=== PATIENT | female | born 2000 | race Caucasian/White ===

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

== ENCOUNTER 2020-01-22 11:09 | Emergency (ER) | payer OTHER ==
[~2020-01-22] VITALS: Ht 172.7 cm; Wt 106.6 kg
[2020-01-22 12:18] LABS: BASO % 0.3 % (0.0-1.0); EOS # 0.1 10*3/uL (0.0-0.4); EOS % 0.8 % (1.0-4.0); HEMATOCRIT 38.3 % (37.0-47.0); LYMPH % 24.6 % (27.0-41.0); MEAN CELL VOLUME 91.4 fl (81.0-99.0); MEAN CORPUSCULAR HGB 30.3 pg (27.0-31.0); MEAN CORPUSCULAR HGB CONC 33.2 g/dl (33.0-37.0); MEAN PLATELET VOLUME 9.4 fl (9.6-12.3); MONO # 0.9 10*3/uL (0.1-1.0); NEUT # 8.1 10*3/uL (2.3-7.9); NEUT % 66.6 % (47.0-73.0); PLATELET COUNT AUTOMATED 292 10*3/uL (130-400); RED BLOOD COUNT 4.19 10*6/uL (4.10-5.10); RED CELL DISTRI WIDTH 12.6 % (0-14.5); WHITE BLOOD COUNT 12.1 10*3/uL (4.8-10.8)
[2020-01-22 12:21] LABS: BILIRUBIN NEGATIVE (NEGATIVE); BLOOD NEGATIVE (NEGATIVE); CLARITY SL CLOUDY (CLEAR); COLOR YELLOW (YELLOW); GLUCOSE NEGATIVE (NEGATIVE); KETONE NEGATIVE (NEGATIVE); NITRITE POSITIVE (NEGATIVE); SPECIFIC GRAVITY 1.015 (1.005-1.030); UROBILINOGEN 0.2 E.U./dl (0.2-1.0)
[2020-01-22 12:22] LABS: LEUKO ESTERASE NEGATIVE (NEGATIVE)
[2020-01-22 12:26] LABS: BACTERIA 3+
[2020-01-22 12:32] LABS: ALBUMIN 3.3 gm/dl (3.1-4.5); ALKALINE PHOSPHATASE 60 U/L (45-117); BUN 8 mg/dl (7-24); CHLORIDE 108 mmol/L (98-107); CREATININE 0.61 mg/dL (0.55-1.02); LIPASE 66 U/L (73-393); POTASSIUM 3.9 mmol/L (3.5-5.1); SGOT/AST 16 IU/L (3-35); SGPT/ALT 18 U/L (12-78); SODIUM 139 mmol/L (136-145)
== END 2020-01-22 14:10 | disposition home or self-care (01) ==
LOC: ED 11:09
PROVIDERS: Physician Assistant
DX: G89.29 Other chronic pain (principal); R10.9 Unspecified abdominal pain; R20.0 Anesthesia of skin; R20.2 Paresthesia of skin; F17.200 Nicotine dependence, unspecified, uncomplicated

== ENCOUNTER 2020-05-02 19:23 | Emergency (ER) | payer OTHER ==
[~2020-05-02] VITALS: Ht 175.2 cm; Wt 111.6 kg
[2020-05-02 20:20] LABS: CLARITY CLEAR (CLEAR); COLOR STRAW (YELLOW)
[2020-05-02 20:22] LABS: BILIRUBIN NEGATIVE (NEGATIVE); BLOOD NEGATIVE (NEGATIVE); GLUCOSE NEGATIVE (NEGATIVE); KETONE NEGATIVE (NEGATIVE)
[2020-05-02 20:23] LABS: PH 5.5 (5.0-9.0); UROBILINOGEN 0.2 E.U./dl (0.2-1.0)
[2020-05-02 20:27] LABS: NITRITE NEGATIVE (NEGATIVE)
[2020-05-02 20:28] LABS: LEUKO ESTERASE NEGATIVE (NEGATIVE)
[2020-05-02 20:29] LABS: BACTERIA TRACE; CALCIUM OXALATE CRYSTALS TR; EPITHELIAL CELLS 0-2; RBC 0-2 rbc/hpf (0-2); WBC 0-2 wbc/hpf (0-5)
== END 2020-05-02 21:15 | disposition home or self-care (01) ==
LOC: ED 19:23
PROVIDERS: Emergency Medicine
DX: O46.8X2 Other antepartum hemorrhage, second trimester (principal); Z3A.22 22 weeks gestation of pregnancy

== ENCOUNTER 2021-02-26 19:18 | Emergency (ER) | payer OTHER ==
[~2021-02-26] VITALS: Ht 170.1 cm; Wt 104.3 kg
== END 2021-02-26 19:37 | disposition home or self-care (01) ==
LOC: ED 19:18
DX: L91.8 Other hypertrophic disorders of the skin (principal)

== ENCOUNTER 2021-03-30 23:31 | Emergency (ER) | payer OTHER ==
[~2021-03-30] VITALS: Ht 172.7 cm; Wt 106.6 kg
== END 2021-03-31 01:04 | disposition home or self-care (01) ==
LOC: ED 23:31
DX: L98.9 Disorder of the skin and subcutaneous tissue, unspecified (principal)